=== PATIENT | female | born 1980 | race Caucasian/White ===

== ENCOUNTER 2016-05-21 13:09 | Emergency (ER) | payer OTHER, SELFPAY ==
--- NOTE | 2016-05-21 17:54 | ERRECORD ---
[facility] EMERGENCY RECORD HPI URI (SatMay 23, 2016 00:27 ALMO) CHIEF COMPLAINT: Patient presents for evaluation of sore throat, Patient presents for evaluation of nasal congestion, Patient presents for evaluation of cough. HISTORIAN: History provided by patient. SEVERITY: Maximum severity of symptoms mild, Currently symptoms are moderate. TIME COURSE: Gradual onset of symptoms. ASSOCIATED WITH: Associated with chest pain, intermittent. ROS CONSTITUTIONAL: Historian reports chills, reports fever. (SatMay 23, 2016 00:29 ALMO) ENT: Historian reports rhinorrhea, reports sore throat. (SatMay 23, 2016 00:29 ALMO) CARDIOVASCULAR: Historian reports chest pain. (SatMay 23, 2016 00:29 ALMO) RESPIRATORY: Historian reports cough, denies shortness of breath. (SatMay 23, 2016 00:29 ALMO) GI: Historian denies nausea, denies vomiting. (SatMay 23, 2016 00:29 ALMO) NOTES: All systems reviewed, negative except as described above. (SatMay 23, 2016 00:30 ALMO) PAST MEDICAL HISTORY (13:25 AWAT) MEDICAL HISTORY: Flu vaccine not up to date, Tetanus immunization up to date, Pneumococcal vaccine not up to date, endocrine disease, hypothyroidism, Notes: GRAVE'S DISEASE, HAD RADIATION TO THYROID AT 13 YEARS OLD, Past medical history includes gastrointestinal disease, irritable bowel syndrome, Past medical history includes musculoskeletal disorder, OSTEOPOROSIS, Notes: FIBROMYALGIA, HYPOGLYCEMIA. FEMALE SURGICAL HISTORY: Surgical history of section X1, Surgical history of tubal ligation, TISSUE REMOVAL FROM CERVIX.07/20/15. OVARIES FROM ABD TISSUE GROWTH. PSYCHIATRIC HISTORY: Psychiatric history includes, bipolar disorder.07/20/15. Notes: Patient states history of BIpolar disorder, Schizophrenia and anxiety. States has successfully controlled all without medications. SAYS SHE TREATS IT WITH JOYCE. SOCIAL HISTORY: Patient denies alcohol use, Patient currently uses drugs, abuses marijuana, Daily drug use, Last used: 2 DAYS AGO, Patient currently uses tobacco, smokes cigarettes, daily, Patient has smoked for 30 years, Patient smokes 1/2 packs per day, Lives at home, alone. FAMILY HISTORY: Family history includes psychiatric disorders. KNOWN ALLERGIES Adult Aspirin: - THINS BLOOD TOO MUCH codeine (Unconfirmed) codeine sulfate: Reaction: Hives, Severity: Moderate, Source: &a-1R&a+25V*p+0X*e4111C*c152B*c15G*c2P*p-0X&a-25V&a+1RName: Ju Shane : 1980 F35 MedRec: [id number] AcctNum: [id number] Prepared: SatMay 23, 2016 00:34 by Interface Page 1 of 3 pMD [facility] EMERGENCY RECORD Patient traMADol: Reaction: Hives, Severity: Moderate, Source: Patient ultram (Unconfirmed) CURRENT MEDICATIONS (13:20 AWAT) Neurontin: TABLET : Strength - 600 mg : ORAL Patient Dose: 1 cap(s) Oral once a day (at bedtime). CAPSULE : Strength - 300 mg : ORAL Patient Dose: 1 cap(s) Oral 2 times a day. levothyroxine: TABLET : Strength - 100 mcg : ORAL Patient Dose: 1 tab(s) Oral once a day (in the morning). VITAL SIGNS (13:16 AWAT) VITAL SIGNS: BP: 121/69, Pulse: 88, Resp: 16, Temp: 98.3 (Oral), Pain: 5 (Constant), O2 sat: 100 on Room Air, Time: 05/21/2016 13:16. PHYSICAL EXAM (SatMay 23, 2016 00:30 ALMO) CONSTITUTIONAL: Vital signs reviewed. HEAD: normocephalic. EYES: Pupils equally round and reactive to light. ENT: Ear exam normal, Pharynx exam normal, Tonsil exam normal. NECK: no cervical adenopathy. RESPIRATORY CHEST: Respiratory exam included findings of no respiratory distress, Breath sounds clear. CARDIOVASCULAR: Cardiovascular exam included findings of heart rate regular rate and rhythm, Heart sounds normal, no murmurs. ABDOMEN FEMALE: Abdominal exam included findings of abdomen nontender. NEURO: Neuro exam findings include patient oriented to person, place and time, Speech normal, Gait normal, no focal motor deficits. SKIN: Skin exam included findings of skin warm, dry, and normal in color. PSYCHIATRIC: Psychiatric exam included findings of patient oriented to person place and time. PROBLEM LIST No recorded problems DIAGNOSIS (17:31 ALMO) FINAL: PRIMARY: Acute URI. PRESCRIPTION No recorded prescriptions DISPOSITION PATIENT: Disposition Type: Discharge, Disposition: *Discharge Home. (17:31 YANI) Patient left the department. (17:47 LOVE) &a-1R&a+25V*p+0X*a2846Z*c152B*c15G*c2P*p-0X&a-25V&a+1RName: ShaneJu : 1980 F35 MedRec: [id number] AcctNum: [id number] Prepared: SatMay 23, 2016 00:34 by Interface Page 2 of 3 pMD [facility] EMERGENCY RECORD Patel: YANI=MD Mathew, Dennis BRUSH=Eduardo RN, Nabor ALEMAN=MORENA Cardoso, Catrachita &a-1R&a+25V*p+0X*z0401F*c152B*c15G*c2P*p-0X&a-25V&a+1RName: Ju Shane : 1980 F35 MedRec: [id number] AcctNum: [id number] Prepared: SatMay 23, 2016 00:34 by Interface Page 3 of 3 pMD MTDD
--- NOTE | 2016-05-21 18:02 | PICIS ---
[facility] EMERGENCY RECORD TRIAGE (SatMay 21, 2016 13:19 AWAT) PATIENT: NAME: Ju Shane, AGE: 35, GENDER: female, : [facility] 1980, TIME OF GREET: SatMay 21, 2016 13:10, PREFERRED LANGUAGE: Divehi, ETHNICITY: Not or , HIGH ALERT: HIGH ALERT 1, FALL RISK: NO, ECODE BILLING MAP: [facility] ER, SSN: [id number], Zip Code: [address], KG WEIGHT: 43.54, PHONE: CELL, , , PERSON ID: [id number], PCP: THOMAS ANTOINE. (SatMay 21, 2016 13:19 AWAT) TRIAGE NOTES: PT C/O COUGH, LOTS OF CONGESTION, BILATERAL EARACHES, SORE/RAW THROAT. THIS ALL STARTED 3 DAYS AGO. THINKS SHE HAS RAN FEVER, BUT NONE AT THIS TIME. TRIAGED, THEN PLACED BACK OUT IN THE WAITING ROOM. FLU & STREP TESTS OBTAINED. (SatMay 21, 2016 13:19 AWAT) COMPLAINT: FLU LIKE SYMPTOMS. (SatMay 21, 2016 13:19 AWAT) ADMISSION: URGENCY: 5 Fast Track, ADMISSION SOURCE: Home, TRANSPORT: Walk-in, BED: WAIT. (SatMay 21, 2016 13:19 AWAT) SIRS SCORING: Heart Rate 55-109 (0), Temp range 96.8-101.1 (0), respiratory rate 12-24 (0), Mental Status altered: no (0). (13:25 AWAT) LMP: Last menstrual period: 04/29/2016. (13:25 AWAT) PROVIDERS: TRIAGE NURSE: Nabor Clark RN. (SatMay 21, 2016 13:19 AWAT) VITAL SIGNS: BP 121/69, Pulse 88, Resp 16, Temp 98.3, (Oral), Pain 5, (Constant), O2 Sat 100, on Room Air, Time 05/21/2016 13:16. (13:16 AWAT) PREVIOUS VISIT ALLERGIES: Adult Aspirin, codeine sulfate, traMADol. (SatMay 21, 2016 13:19 AWAT) Adult Aspirin, codeine sulfate, traMADol. (13:25 AWAT) KNOWN ALLERGIES Adult Aspirin: - THINS BLOOD TOO MUCH codeine (Unconfirmed) codeine sulfate: Reaction: Hives, Severity: Moderate, Source: Patient traMADol: Reaction: Hives, Severity: Moderate, Source: Patient ultram (Unconfirmed) CURRENT MEDICATIONS (13:20 AWAT) Neurontin: TABLET : Strength - 600 mg : ORAL Patient Dose: 1 cap(s) Oral once a day (at bedtime). CAPSULE : Strength - 300 mg : ORAL Patient Dose: 1 cap(s) Oral 2 times a day. levothyroxine: TABLET : Strength - 100 mcg : ORAL Patient Dose: 1 tab(s) Oral once a day (in the morning). VITAL SIGNS (13:16 AWAT) VITAL SIGNS: BP: 121/69, Pulse: 88, Resp: 16, Temp: 98.3 (Oral), &a-1R&a+25V*p+0X*h9284D*c152B*c15G*c2P*p-0X&a-25V&a+1RName: Acosta Ju : 1980 F35 MedRec: [id number] AcctNum: [id number] Prepared: SatMay 23, 2016 00:34 by Interface Page 1 of 5 pMD [facility] EMERGENCY RECORD Pain: 5 (Constant), O2 sat: 100 on Room Air, Time: 05/21/2016 13:16. NURSING ASSESSMENT: ENT (13:22 AWAT) CONSTITUTIONAL: Simple assessment performed, Patient arrives ambulatory, Gait steady, History obtained from patient, Patient appears comfortable, Patient cooperative, Patient alert, Oriented to person, place and time, Skin warm, Skin dry, Skin normal in color, Mucous membranes pink, Mucous membranes moist, Patient is well-groomed, Patient complains of SORE THROAT, COUGH, CONGESTION, EAR ACHES. PAIN: aching pain, to bilateral ears, to the throat, Onset of pain 05/18/2016 - APPROX, on a scale 0-10 patient rates pain as 5. ENT: Nasal assessment findings include nose normal to inspection, Mouth and throat assessment findings include mouth inspection normal, Notes: DR CARMONA WILL EXAMINE FURTHER. THROAT VERY RED, NO EAR OR NOSE DRAINAGE NOTED. POOR DENTAL. RESPIRATORY/CHEST: Breath sounds clear, Respiratory assessment findings include respiratory effort easy, Respirations regular, Conversing normally, Neck and chest exam findings include trachea midline, Chest expansion equal, Chest movement symmetrical, Associated with cough, productive of, yellow sputum, PER PT. NOTES: Emotional support needed and given, Patient tolerated procedure well. SAFETY: Side rails up, Cart/Stretcher in lowest position, Call light within reach, Hospital ID band on, Physician notified of above findings. ORDER DETAILS Order Name: Influenza A&B Ag Screen, Status: Active, Time: 13:30 05/21/2016, User: GONSALO, - Ordered for: MD Carmona Alberto, - Entered by: MORENA Clark Adam - Larisa May 21, 2016 13:30, - Quantity: 1, Order Name: Strep Group A Screen, Status: Active, Time: 13:30 05/21/2016, User: GONSALO, - Ordered for: MD Carmona Alberto, - Entered by: MORENA Clark Adam - [facility] May 21, 2016 13:30, - Quantity: 1. HPI URI (SatMay 23, 2016 00:27 ALMO) CHIEF COMPLAINT: Patient presents for evaluation of sore throat, Patient presents for evaluation of nasal congestion, Patient presents for evaluation of cough. HISTORIAN: History provided by patient. SEVERITY: Maximum severity of symptoms mild, Currently symptoms are moderate. TIME COURSE: Gradual onset of symptoms. ASSOCIATED WITH: Associated with chest pain, intermittent. &a-1R&a+25V*p+0X*g4200Y*c152B*c15G*c2P*p-0X&a-25V&a+1RName: Ju Shane : 1980 F35 MedRec: [id number] AcctNum: [id number] Prepared: SatMay 23, 2016 00:34 by Interface Page 2 of 5 pMD [facility] EMERGENCY RECORD ROS CONSTITUTIONAL: Historian reports chills, reports fever. (SatMay 23, 2016 00:29 ALMO) ENT: Historian reports rhinorrhea, reports sore throat. (SatMay 23, 2016 00:29 ALMO) CARDIOVASCULAR: Historian reports chest pain. (SatMay 23, 2016 00:29 ALMO) RESPIRATORY: Historian reports cough, denies shortness of breath. (SatMay 23, 2016 00:29 ALMO) GI: Historian denies nausea, denies vomiting. (SatMay 23, 2016 00:29 ALMO) NOTES: All systems reviewed, negative except as described above. (SatMay 23, 2016 00:30 ALMO) PAST MEDICAL HISTORY (13:25 AWAT) MEDICAL HISTORY: Flu vaccine not up to date, Tetanus immunization up to date, Pneumococcal vaccine not up to date, endocrine disease, hypothyroidism, Notes: GRAVE'S DISEASE, HAD RADIATION TO THYROID AT 13 YEARS OLD, Past medical history includes gastrointestinal disease, irritable bowel syndrome, Past medical history includes musculoskeletal disorder, OSTEOPOROSIS, Notes: FIBROMYALGIA, HYPOGLYCEMIA. FEMALE SURGICAL HISTORY: Surgical history of section X1, Surgical history of tubal ligation, TISSUE REMOVAL FROM CERVIX.07/20/15. OVARIES FROM ABD TISSUE GROWTH. PSYCHIATRIC HISTORY: Psychiatric history includes, bipolar disorder.07/20/15. Notes: Patient states history of BIpolar disorder, Schizophrenia and anxiety. States has successfully controlled all without medications. SAYS SHE TREATS IT WITH JOYCE. SOCIAL HISTORY: Patient denies alcohol use, Patient currently uses drugs, abuses marijuana, Daily drug use, Last used: 2 DAYS AGO, Patient currently uses tobacco, smokes cigarettes, daily, Patient has smoked for 30 years, Patient smokes 1/2 packs per day, Lives at home, alone. FAMILY HISTORY: Family history includes psychiatric disorders. PHYSICAL EXAM (SatMay 23, 2016 00:30 ALMO) CONSTITUTIONAL: Vital signs reviewed. HEAD: normocephalic. EYES: Pupils equally round and reactive to light. ENT: Ear exam normal, Pharynx exam normal, Tonsil exam normal. NECK: no cervical adenopathy. RESPIRATORY CHEST: Respiratory exam included findings of no respiratory distress, Breath sounds clear. CARDIOVASCULAR: Cardiovascular exam included findings of heart rate regular rate and rhythm, Heart sounds normal, no murmurs. ABDOMEN FEMALE: Abdominal exam included findings of abdomen nontender. NEURO: Neuro exam findings include patient oriented to person, &a-1R&a+25V*p+0X*n2447N*c152B*c15G*c2P*p-0X&a-25V&a+1RName: Ju Shane : 1980 F35 MedRec: [id number] AcctNum: [id number] Prepared: SatMay 23, 2016 00:34 by Interface Page 3 of 5 pMD [facility] EMERGENCY RECORD place and time, Speech normal, Gait normal, no focal motor deficits. SKIN: Skin exam included findings of skin warm, dry, and normal in color. PSYCHIATRIC: Psychiatric exam included findings of patient oriented to person place and time. EVENTS TRANSFER: Triage to Emergency Waiting. (13:19 AWAT) Removed from Emergency Waiting. (17:47 MDEB) PROBLEM LIST No recorded problems DIAGNOSIS (17:31 ALMO) FINAL: PRIMARY: Acute URI. DISPOSITION PATIENT: Disposition Type: Discharge, Disposition: *Discharge Home. (17:31 ALMO) Patient left the department. (17:47 MDEB) INSTRUCTION (17:32 ALMO) DISCHARGE: URI NO ANTIBIOTIC TREATMENT ADULT. FOLLOWUP: Follow up with Primary Care Physician as needed. SPECIAL: Follow-up with your PCP. PRESCRIPTION No recorded prescriptions IMAGING (21:47 ADEA) *DISCHARGE INSTRUCTIONS RECEIPT: Image captured from scanner. *SUPPLY CHARGE SHEET: Image captured from scanner. ADMIN (SatMay 23, 2016 00:32 ALMO) DIGITAL SIGNATURE: MD Mathew [facility]. RESULTS (14:20 AWAT) MICROBIOLOGY: Influenza A&B Ag Screen: [id number] Collection DT: SatMay 21, 2016 13:37, See comment below , @ ER ROOM#: WAIT[TxData]:ER.BED Source: Nasal swab Spec Desc: , Influenza A Antigen: NEGATIVE for the , presence of , INFLUENZA A Antigen , Influenza B Antigen: NEGATIVE for the , presence of , INFLUENZA B Antigen , The rapid Flu A&B test can distinguish between influenza A , Influenza A&B Ag Screen See comment below , and B viruses, but it does not differentiate influenza , &a-1R&a+25V*p+0X*m0022G*c152B*c15G*c2P*p-0X&a-25V&a+1RName: Ju Shane : 1980 F35 MedRec: [id number] AcctNum: [id number] Prepared: SatMay 23, 2016 00:34 by Interface Page 4 of 5 pMD [facility] EMERGENCY RECORD Influenza A&B Ag Screen See comment below , subtypes. , Influenza A&B Ag Screen See comment below , Influenza A&B Ag Screen See comment below , Influenza A&B Ag Screen See comment below , Influenza A&B Ag Screen See comment below , characteristics of this device with human specimens infected , Influenza A&B Ag Screen See comment below , with the 2008 H1N1 influenza virus have not been , Influenza A&B Ag Screen See comment below , established. For example: this test cannot distinguish , Influenza A&B Ag Screen See comment below , influenza infections caused by novel H1N1 influenza A , Influenza A&B Ag Screen See comment below , viruses versus seasonal influenza A viruses. , Influenza A&B Ag Screen See comment below , , Influenza A&B Ag Screen See comment below , A negative result does not exclude influenza virus , Influenza A&B Ag Screen See comment below , infection; therefore, if more conclusive testing is desired, , Influenza A&B Ag Screen See comment below , follow up confirmatory testing is warranted., Influenza A&B Ag Screen See comment below . Strep Group A Screen: [id number] Collection DT: SatMay 21, 2016 13:37, See comment below , @ ER ROOM#: WAIT[TxData]:ER.BED Source: Throat Spec Desc: PENDING, Strep A Negative CDC recommends , confirmation by , culture on all , negative , Strep negative line 1 Group A , Streptococcus rapid , screens. Please , order , Strep negative line 2 a throat culture if , clinically , indicated. , Rapid Strep Screen:Throat Negative . Patel: GLENDA=MORENA Harrison, Nikolay LOMELI=MD Mathew, Dennis BRUSH=MORENA Clark, Nabor ALEMAN=MORENA Cardoso, Catrachita &a-1R&a+25V*p+0X*i0589L*c152B*c15G*c2P*p-0X&a-25V&a+1RName: Ju Shane : 1980 F35 MedRec: [id number] AcctNum: [id number] Prepared: SatMay 23, 2016 00:34 by Interface Page 5 of 5 pMD MTDD
== END 2016-05-21 17:45 | disposition home or self-care (01) ==
LOC: MADERS 13:09
DX: J06.9 Acute upper respiratory infection, unspecified (principal); M81.0 Age-related osteoporosis without current pathological fracture; E03.9 Hypothyroidism, unspecified; F31.9 Bipolar disorder, unspecified; F41.9 Anxiety disorder, unspecified; F17.210 Nicotine dependence, cigarettes, uncomplicated
CPT/HCPCS: 87430; 99283

== ENCOUNTER 2016-05-25 11:11 | Emergency (ER) | payer SELFPAY ==
[2016-05-25] MEDS ORDERED: Lidocaine 1% 20 ML MDV ONE (11:34)
[2016-05-25] MEDS ORDERED: cefTRIAXone\\ROCEPHIN 1 GM VIAL ONE (11:34)
[2016-05-25] MEDS ORDERED: Ibuprofen 800 MG TAB ONE (11:34)
[2016-05-25] MEDS ORDERED: Ondansetron ODT 4 MG TAB ONE (11:34)
--- NOTE | 2016-05-25 12:13 | PICIS ---
[facility] EMERGENCY RECORD TRIAGE (SatMay 25, 2016 11:20 SFRE) TRIAGE NOTES: LEFT EAR PAIN. (SatMay 25, 2016 11:20 SFRE) PATIENT: NAME: Ju Shane, AGE: 35, GENDER: female, : [facility] 1980, TIME OF GREET: SatMay 25, 2016 11:12, PREFERRED LANGUAGE: [place] Zealander, ETHNICITY: Not or , HIGH ALERT: HIGH ALERT 1, FALL RISK: NO, ECODE BILLING MAP: [facility], SSN: [id number], Zip Code: [address], KG WEIGHT: 43.54, PHONE: CELL, , , PERSON ID: [id number], PCP: caitlin. (SatMay 25, 2016 11:20 SFRE) COMPLAINT: LEFT EAR PAIN. (SatMay 25, 2016 11:20 SFRE) ADMISSION: URGENCY: 5 Fast Track, ADMISSION SOURCE: Home, TRANSPORT: Walk-in, BED: ED -03. (SatMay 25, 2016 11:20 SFRE) ASSESSMENT: Symptoms began 05/25/2016. (11:22 SFRE) PAIN: Patient complains of pain described as, stabbing, on a scale 0-10 patient rates pain as 9, Pain is constant. (11:22 SFRE) IMMUNIZATIONS: Flu vaccine not up to date. (11:22 SFRE) SIRS SCORING: Heart Rate 55-109 (0), Temp range 96.8-101.1 (0), respiratory rate 12-24 (0), Mental Status altered: no (0). (11:22 SFRE) TRIAGE SCREENING: Patient denies suicidal ideation, Patient denies presence of domestic violence. (11:22 SFRE) PROVIDERS: TRIAGE NURSE: Edith Hamilton RN. (SatMay 25, 2016 11:20 SFRE) VITAL SIGNS: BP 143/88, Pulse 72, Resp 18, Temp 98.4, (Tympanic), Pain 9, (Stabbing), O2 Sat 100, on Room Air, Time 05/25/2016 11:19. (11:19 SFRE) PREVIOUS VISIT ALLERGIES: Adult Aspirin, codeine sulfate, traMADol. (SatMay 25, 2016 11:20 SFRE) Adult Aspirin, codeine sulfate, traMADol. (11:22 SFRE) KNOWN ALLERGIES Adult Aspirin: - THINS BLOOD TOO MUCH codeine (Unconfirmed) codeine sulfate: Reaction: Hives, Severity: Moderate, Source: Patient traMADol: Reaction: Hives, Severity: Moderate, Source: Patient ultram (Unconfirmed) CURRENT MEDICATIONS No recorded medications VITAL SIGNS (11:19 SFRE) VITAL SIGNS: BP: 143/88, Pulse: 72, Resp: 18, Temp: 98.4 (Tympanic), Pain: 9 (Stabbing), O2 sat: 100 on Room Air, Time: 05/25/2016 11:19. NURSING ASSESSMENT: EAR (11:44 SFRE) CONSTITUTIONAL: Patient arrives ambulatory, Gait steady, History &a-1R&a+25V*p+0X*[id number]*c152B*c15G*c2P*p-0X&a-25V&a+1RName: Ju Shane : 1980 F35 MedRec: [id number] AcctNum: [id number] Prepared: SatMay 25, 2016 20:00 by Interface Page 1 of 6 pMD [facility] EMERGENCY RECORD obtained from patient, Patient appears, in distress due to pain, Patient cooperative, Patient alert, Oriented to person, place and time, Skin warm, Skin dry, Skin normal in color, Mucous membranes pink, Mucous membranes moist, Patient is well-groomed, Patient complains of LEFT EAR PAIN. PAIN: sharp pain, throbbing pain, to the left ear, Onset of pain 05/25/2016 0200, constant, on a scale 0-10 patient rates pain as 9, Pain exacerbated by nothing, Nothing has been tried to alleviate the pain. EAR: Drainage from, the right ear, purulent. SAFETY: Side rails up, Cart/Stretcher in lowest position, Call light within reach, Hospital ID band on. NURSING PROCEDURE: DISCHARGE NOTE (11:56 SFRE) DISCHARGE: Patient discharged to home, ambulating without assistance, driving self, unaccompanied, Summary of Care printed/ provided, Patient requested and was provided an electronic copy of Discharge Instructions, Discharge instructions given to patient, Simple or moderate discharge teaching performed, by S.HAMILTON,RN, F/U WITH PCP. RX DIRECTED. RETURN TO ED NEEDED FOR NEW/CONCERNING OR WORSENING SYMPTOMS., Prescriptions given and instructions on side effects given, Name of prescription(s) given: TRAMADOL, ZOFRAN, AMOXICILLAN, Above person(s) verbalized understanding of discharge instructions and follow-up care. SAFETY: Side rails up, Cart/Stretcher in lowest position, Call light within reach, Hospital ID band on. MEDICATION ADMINISTRATION SUMMARY Drug Name: *Rocephin injection, Dose Ordered: 1 g, Route: Intramuscular, Status: Given, Time: 11:42 05/25/2016, Drug Name: ibuprofen, Dose Ordered: 800 mg, Route: Oral, Status: Given, Time: 11:41 05/25/2016, Drug Name: Zofran ODT, Dose Ordered: 8 mg, Route: Oral, Status: Given, Time: 11:41 05/25/2016, *Additional information available in notes, Detailed record available in Medication Service section. MEDICATION SERVICE ibuprofen: Order: ibuprofen - Dose: 800 mg : Oral POTENTIAL ALLERGY REACTION: 'Adult Aspirin [aspirin]' - Reviewed with patient, has taken before Schedule: Now Ordered by: Elijah Max MD Entered by: Elijah Max MD SatMay 25, 2016 11:27 , Acknowledged by: Edith Hamilton RN SatMay 25, 2016 11:33 Documented as given by: Edith Hamilton RN SatMay 25, 2016 11:41 Patient, Medication, Dose, Route and Time verified prior to administration. Amount given: 800MG, Site: Medication administered P.O., Correct &a-1R&a+25V*p+0X*d7355F*c152B*c15G*c2P*p-0X&a-25V&a+1RName: Ju Shane : 1980 F35 MedRec: [id number] AcctNum: [id number] Prepared: SatMay 25, 2016 20:00 by Interface Page 2 of 6 pMD [facility] EMERGENCY RECORD patient, time, route, dose and medication confirmed prior to administration, Patient advised of actions and side-effects prior to administration, Allergies confirmed and medications reviewed prior to administration, Patient in position of comfort, Side rails up, Cart in lowest position, Family at bedside. Rocephin injection: Order: Rocephin injection (ceftriaxone sodium) - Dose: 1 g : Intramuscular Schedule: Now Notes: Can mix with lidocaine Ordered by: Elijah Max MD Entered by: Elijah Max MD SatMay 25, 2016 11:25 , Acknowledged by: Edith Hamilton RN SatMay 25, 2016 11:33 Documented as given by: Edith Hamilton RN [facility] May 25, 2016 11:42 Patient, Medication, Dose, Route and Time verified prior to administration. IM antibiotic, Amount given: 1G, Medication administered to right hip, Medication combined for administration with 1% LIDOCAINE, Patient appears Awake and alert- acceptable, Correct patient, time, route, dose and medication confirmed prior to administration, Patient advised of actions and side-effects prior to administration, Allergies confirmed and medications reviewed prior to administration, Patient in position of comfort, Side rails up, Cart in lowest position, Family at bedside. Zofran ODT: Order: Zofran ODT (ondansetron) - Dose: 8 mg : Oral Schedule: Now Ordered by: Elijah Max MD Entered by: Elijah Max MD SatMay 25, 2016 11:27 , Acknowledged by: Edith Hamilton RN SatMay 25, 2016 11:33 Documented as given by: Edith Hamilton RN SatMay 25, 2016 11:41 Patient, Medication, Dose, Route and Time verified prior to administration. Amount given: 8MG, Site: Medication administered S.L., Correct patient, time, route, dose and medication confirmed prior to administration, Patient advised of actions and side-effects prior to administration, Allergies confirmed and medications reviewed prior to administration, Patient in position of comfort, Side rails up, Cart in lowest position, Family at bedside. HPI EAR PAIN (11:37 ABUS) CHIEF COMPLAINT: Patient presents for evaluation of pain, to the left ear. HISTORIAN: History provided by patient, 35 yr old F with L ear pain for 2-3 days now worse. Mild nausea but no fever or vomiting. LMP early Apr. LOCATION: Symptoms are localized, most severe in the left ear. QUALITY: Pain is dull in nature, described as aching, described as pressure-like. TIME COURSE: Gradual onset of symptoms, 3, days priror to arrival, Symptoms are worsening. ASSOCIATED WITH: Associated with headache, Associated with nausea. EXACERBATED BY: &a-1R&a+25V*p+0X*j2171K*c152B*c15G*c2P*p-0X&a-25V&a+1RName: Ju Shane : 1980 F35 MedRec: [id number] AcctNum: [id number] Prepared: SatMay 25, 2016 20:00 by Interface Page 3 of 6 pMD [facility] EMERGENCY RECORD Patient's condition exacerbated by nothing. RELIEVED BY: Patient's condition relieved by nothing. ROS CONSTITUTIONAL: Negative constitutional review of systems, Historian denies chills, denies fever. (11:38 ABUS) ENT: Historian reports otalgia. (11:39 ABUS) CARDIOVASCULAR: Negative cardiovascular review of systems, Historian denies chest pain, denies palpitations. (11:38 ABUS) RESPIRATORY: Negative respiratory review of systems, Historian denies cough, denies shortness of breath. (11:38 ABUS) GI: Negative gastrointestinal review of systems, Historian denies abdominal pain, denies constipation, denies diarrhea, denies nausea, denies vomiting. (11:38 ABUS) GENITOURINARY FEMALE: Negative genitourinary review of systems, Historian denies dysuria, denies frequency. (11:38 ABUS) SKIN: Negative skin review of systems, Historian denies rash, denies skin changes. (11:38 ABUS) NEUROLOGIC: Negative neurologic review of systems, Historian denies headache. (11:38 ABUS) HEMO/LYMPHATIC: Normal hematologic/lymphatic system review, Historian denies abnormal blood clotting. (11:38 ABUS) PAST MEDICAL HISTORY (11:22 SFRE) MEDICAL HISTORY: Flu vaccine not up to date, Tetanus immunization up to date, Pneumococcal vaccine not up to date, endocrine disease, hypothyroidism, Notes: GRAVE'S DISEASE, HAD RADIATION TO THYROID AT 13 YEARS OLD, Past medical history includes gastrointestinal disease, irritable bowel syndrome, Past medical history includes musculoskeletal disorder, OSTEOPOROSIS, Notes: FIBROMYALGIA, HYPOGLYCEMIA. FEMALE SURGICAL HISTORY: Surgical history of section X1, Surgical history of tubal ligation, TISSUE REMOVAL FROM CERVIX.07/20/15. OVARIES FROM ABD TISSUE GROWTH. PSYCHIATRIC HISTORY: Psychiatric history includes, bipolar disorder.07/20/15. Notes: Patient states history of BIpolar disorder, Schizophrenia and anxiety. States has successfully controlled all without medications. SAYS SHE TREATS IT WITH JOYCE. SOCIAL HISTORY: Patient denies alcohol use, Patient currently uses drugs, abuses marijuana, Daily drug use, Last used: 2 DAYS AGO, Patient currently uses tobacco, smokes cigarettes, daily, Patient has smoked for 30 years, Patient smokes 1/2 packs per day, Lives at home, alone. FAMILY HISTORY: Family history includes psychiatric disorders. PHYSICAL EXAM CONSTITUTIONAL: Vital signs reviewed, Patient afebrile, Pulse normal, Blood pressure normal, Respiratory rate normal, Patient appears non toxic, Patient appears pain free, Patient alert and oriented to person, place and time. (11:38 ABUS) &a-1R&a+25V*p+0X*c4581T*c152B*c15G*c2P*p-0X&a-25V&a+1RName: Ju Shane : 1980 F35 MedRec: [id number] AcctNum: [id number] Prepared: SatMay 25, 2016 20:00 by Interface Page 4 of 6 pMD [facility] EMERGENCY RECORD ENT: Ear exam included findings of, left external ear with erythema, right external ear normal, tympanic membrane with bulging on the left, tympanic membrane normal on the right, Nose exam normal, no nasal deformity, no bleeding from nares, Pharynx exam normal, not injected, no swelling, symmetrical, Uvula exam normal, Tonsil exam normal, not enlarged, no exudates. (11:39 ABUS) NECK: Neck exam normal, Neck exam included findings of normal range of motion, Trachea midline, no meningeal signs, no cervical adenopathy, no tenderness. (11:38 ABUS) RESPIRATORY CHEST: Respiratory and chest exam normal, Respiratory exam included findings of no respiratory distress, Breath sounds clear. (11:38 ABUS) CARDIOVASCULAR: Cardiovascular assessment normal, Cardiovascular exam included findings of heart rate regular rate and rhythm, Heart sounds normal. (11:38 ABUS) ABDOMEN FEMALE: Abdominal exam included findings of abdomen nontender, Bowel sounds normal, no distension, no mass, no pulsatile masses, no peritoneal signs, no rigidity, no guarding, no rebound, Rovsing's sign absent. (11:38 ABUS) BACK: Back exam normal, Back exam included findings of normal inspection, range of motion normal, no tenderness. (11:38 ABUS) NEURO: Neuro exam normal, Neuro exam findings include patient oriented to person, place and time, Speech normal, Gait normal. (11:38 ABUS) SKIN: Skin exam normal, Skin exam included findings of skin warm, dry, and normal in color, no rash. (11:38 ABUS) EVENTS TRANSFER: Triage to Emergency Main ED -03. (SatMay 25, 2016 11:20 SFRE) Removed from Emergency Main ED -03. (12:00 SFRE) DOCTOR NOTES (11:40 ABUS) TEXT: 35 yr old F with L ear pain for 2-3 days now worse. Mild nausea but no fever or vomiting. Exam: Left TM redness DX: otitis media Plan: Abx, analgesics, Zofran Dispo: d/c home with return precautions. PROBLEM LIST No recorded problems DIAGNOSIS (11:30 ABUS) FINAL: PRIMARY: Otitis Media - LEFT ear. DISPOSITION PATIENT: Disposition Type: Discharge, Disposition: *Discharge Home, Condition: Good. (11:30 ABUS) Patient left the department. (12:00 SFRE) &a-1R&a+25V*p+0X*[id number]*c152B*c15G*c2P*p-0X&a-25V&a+1RName: Ju Shane : 1980 F35 MedRec: [id number] AcctNum: [id number] Prepared: SatMay 25, 2016 20:00 by Interface Page 5 of 6 pMD [facility] EMERGENCY RECORD INSTRUCTION (11:30 ABUS) DISCHARGE: EARACHE WITH INFECTION OTITIS MEDIA ABX [place] ADULT. FOLLOWUP: [facility], [facility], [address] [facility], [facility] [address], , Follow up with Primary Care Physician in 2-3 days. SPECIAL: As discussed in the ER before you left, please follow up with your primary care doctor or call the referral made for you here in the ED today to establish outpatient follow up for your medical care. Please come back sooner if you start to develop fever, worsening pain, vomiting, or symptoms that are new or symptoms the concern you. PRESCRIPTION (11:29 ABUS) traMADol: TABLET : 50 mg : ORAL : Quantity: 1 Unit: tab(s) Route: ORAL Schedule: every 6 hours PRN Dispense: 10 Unit: tab(s) May substitute. Refills: No Refills POTENTIAL ALLERGY REACTION: 'codeine sulfate [codeine/codeine sulfate]', 'traMADol [tramadol/tramadol HCl]' Override Rationale: Not a true drug allergy, Reviewed with patient. NOTES: No Refills. Zofran ODT: TABLET,DISINTEGRATING : 4 mg : ORAL : Quantity: 1 Unit: tab(s) Route: ORAL Schedule: every 8 hours PRN Dispense: 5 Unit: tab(s) May substitute. Refills: No Refills . NOTES: ^s=No Refills No Refills. amoxicillin: CAPSULE : 500 mg : ORAL : Quantity: 1 Unit: cap(s) Route: ORAL Schedule: 3 times a day Dispense: 30 Unit: cap(s) May substitute. Refills: No Refills . NOTES: ^s=^s=No Refills No Refills No Refills. IMAGING (11:58 SFRE) *DISCHARGE INSTRUCTIONS RECEIPT: Image captured from scanner. *SUPPLY CHARGE SHEET: Image captured from scanner. ADMIN DIGITAL SIGNATURE: MORENA Hamilton Stacey. (12:00 SFRE) MD Max Anthony. (19:48 ABUS) Patel: ABUS=MD Max Anthony SFRE=MORENA Hamilton Stacey &a-1R&a+25V*p+0X*t1939G*c152B*c15G*c2P*p-0X&a-25V&a+1RName: Ju Shane : 1980 F35 MedRec: [id number] AcctNum: [id number] Prepared: SatMay 25, 2016 20:00 by Interface Page 6 of 6 pMD MTDD
== END 2016-05-25 11:59 | disposition home or self-care (01) ==
LOC: MADERS 11:11
DX: H66.92 Otitis media, unspecified, left ear (principal); E03.9 Hypothyroidism, unspecified; F17.210 Nicotine dependence, cigarettes, uncomplicated; F31.9 Bipolar disorder, unspecified
CPT/HCPCS: 96372; J0696; J2001; Q0162

== ENCOUNTER 2016-05-29 15:35 | Emergency (ER) | payer MEDICAID, SELFPAY ==
--- NOTE | 2016-05-29 16:34 | ERRECORD ---
[facility] EMERGENCY RECORD HPI EAR PAIN (16:08 LHOD) CHIEF COMPLAINT: Patient presents for evaluation of pain, to bilateral ears. HISTORIAN: History provided by patient. TIME COURSE: PT REPORTS 3-4 DAYS AGO SHE HAD ONSET OF LEFT EAR PAIN. WAS SEEN HERE AND DIAGNOSED WITH OM. PT REPORTS SHE HAS IMPROVED ON AMOXIL, BUT NOW HAS FULLNESS IN LEFT EAR. NO FEVER OR VOMTING. ASSOCIATED WITH: No associated chills, Associated with cough, No associated dizziness, No associated drainage, No associated dysphagia, No associated fever, No associated foreign body, No associated headache, No associated nausea, No associated sore throat, No associated trauma. ROS (16:13 LHOD) CONSTITUTIONAL: Historian denies chills, denies fever. ENT: Historian reports hearing changes, reports otalgia, reports rhinorrhea, reports sinus pain, denies sore throat. REPORTS BOTH EARS FEEL CONGESTED. CARDIOVASCULAR: Historian denies chest pain. RESPIRATORY: Historian reports cough. GI: Historian denies abdominal pain, denies nausea. GENITOURINARY FEMALE: Historian denies . SKIN: Historian denies rash. NEUROLOGIC: Historian denies dizziness, denies headache. NOTES: All systems reviewed, negative except as described above. PAST MEDICAL HISTORY MEDICAL HISTORY: Flu vaccine not up to date, Tetanus immunization up to date, Pneumococcal vaccine not up to date, endocrine disease, hypothyroidism, Notes: GRAVE'S DISEASE, HAD RADIATION TO THYROID AT 13 YEARS OLD, Past medical history includes gastrointestinal disease, irritable bowel syndrome, Past medical history includes musculoskeletal disorder, OSTEOPOROSIS, Notes: FIBROMYALGIA, HYPOGLYCEMIA. (15:43 SFRE) FEMALE SURGICAL HISTORY: Surgical history of section X1, Surgical history of tubal ligation, TISSUE REMOVAL FROM CERVIX.07/20/15. OVARIES FROM ABD TISSUE GROWTH. (15:43 SFRE) PSYCHIATRIC HISTORY: Psychiatric history includes, bipolar disorder.07/20/15. Notes: Patient states history of BIpolar disorder, Schizophrenia and anxiety. States has successfully controlled all without medications. SAYS SHE TREATS IT WITH MARAJUANA. (15:43 SFRE) SOCIAL HISTORY: Patient denies alcohol use, Patient currently uses drugs, abuses marijuana, Daily drug use, Last used: 2 DAYS AGO, Patient currently uses tobacco, smokes cigarettes, daily, Patient has smoked for 30 years, Patient smokes 1/2 packs per day, Lives at home, alone. (15:43 SFRE) FAMILY HISTORY: Family history includes psychiatric disorders. (15:43 SFRE) &a-1R&a+25V*p+0X*y0737O*c152B*c15G*c2P*p-0X&a-25V&a+1RName: Ju Shane : 1980 F35 MedRec: [id number] AcctNum: [id number] Prepared: Ty May 29, 2016 18:43 by Interface Page 1 of 3 pMD [facility] EMERGENCY RECORD NOTES: Nursing records reviewed. (15:45 LHOD) KNOWN ALLERGIES Adult Aspirin: - THINS BLOOD TOO MUCH codeine (Unconfirmed) codeine sulfate: Reaction: Hives, Severity: Moderate, Source: Patient traMADol (Unconfirmed): Reaction: Hives, Severity: Moderate, Source: Patient ultram (Unconfirmed) CURRENT MEDICATIONS No recorded medications PHYSICAL EXAM (18:38 LHOD) CONSTITUTIONAL: Vital signs reviewed, Patient afebrile, Pulse normal, Blood pressure normal, Respiratory rate normal, Patient appears in pain, in moderate pain distress, Patient alert and oriented to person, place and time, PT VERY ANXIOUS. HEAD: Head exam included findings of head atraumatic. EYES: Pupils equally round and reactive to light, Extraocular muscles intact, EYE CHANGES OF GRAVES DISEASE WITH PROPTOSIS. ENT: Ear exam normal, Pharynx exam normal, RIGHT TM NORMAL, LEFT TM--LOWER EDGE HAS SMALL AMOUNT OF CERUMEN, BUT TM CLEAR W/O INFECTION. NECK: Neck exam included findings of normal range of motion, Trachea midline, no cervical adenopathy. RESPIRATORY CHEST: Respiratory exam included findings of no respiratory distress, Breath sounds clear. CARDIOVASCULAR: Cardiovascular exam included findings of heart rate regular rate and rhythm, Heart sounds normal. NEURO: Neuro exam findings include patient oriented to person, place and time, Speech normal. SKIN: no rash. PROBLEM LIST No recorded problems DIAGNOSIS (15:56 LHOD) FINAL: PRIMARY: BILATERAL OTALGIA---NON-SPECIFIC CONGESTION. PRESCRIPTION No recorded prescriptions DISPOSITION PATIENT: Disposition Type: Discharge, Disposition: *Discharge Home, Condition: Good. (15:56 LHOD) Patient left the department. (16:21 SFRE) &a-1R&a+25V*p+0X*h5858A*c152B*c15G*c2P*p-0X&a-25V&a+1RName: Ju Shane : 1980 5 MedRec: [id number] AcctNum: [id number] Prepared: SatMay 29, 2016 18:43 by Interface Page 2 of 3 pMD [facility] EMERGENCY RECORD Patel: LHOD=MD Vivienne, Josh SFRE=MORENA Hamilton, Edith &a-1R&a+25V*p+0X*[id number]*c152B*c15G*c2P*p-0X&a-25V&a+1RName: Ju Shane : 1980 F35 MedRec: [id number] AcctNum: [id number] Prepared: SatMay 29, 2016 18:43 by Interface Page 3 of 3 pMD [facility]
--- NOTE | 2016-05-29 16:44 | PICIS ---
[facility] EMERGENCY RECORD TRIAGE (SatMay 29, 2016 15:41 SFRE) PATIENT: NAME: Ju Shane, AGE: 35, GENDER: female, : Sat1980, TIME OF GREET: SatMay 29, 2016 15:36, PREFERRED LANGUAGE: Korean, ETHNICITY: Not or , HIGH ALERT: HIGH ALERT 1, FALL RISK: NO, ECODE BILLING MAP: [facility], SSN: [id number], Zip Code: [address], KG WEIGHT: 40.82, PHONE: CELL, , , PERSON ID: [id number]. (SatMay 29, 2016 15:41 SFRE) COMPLAINT: RT EAR INFECTION. (SatMay 29, 2016 15:41 SFRE) ADMISSION: URGENCY: 5 Fast Track, ADMISSION SOURCE: Home, TRANSPORT: Walk-in, BED: ED -03. (SatMay 29, 2016 15:41 SFRE) ASSESSMENT: Assessment: NAD. (15:44 SFRE) PAIN: Patient complains of pain described as, pressure, on a scale 0-10 patient rates pain as 4, Location RIGHT EAR INFECTION, Pain is constant. (15:44 SFRE) IMMUNIZATIONS: Flu vaccine not up to date. (15:44 SFRE) SIRS SCORING: Heart Rate 55-109 (0), Temp range 96.8-101.1 (0), respiratory rate 12-24 (0), Mental Status altered: no (0). (15:45 SFRE) TRIAGE SCREENING: Patient denies suicidal ideation, Patient denies presence of domestic violence. (15:45 SFRE) PROVIDERS: TRIAGE NURSE: Edith Hamilton RN. (SatMay 29, 2016 15:41 SFRE) PREVIOUS VISIT ALLERGIES: Adult Aspirin, codeine sulfate, traMADol. (SatMay 29, 2016 15:41 SFRE) Adult Aspirin, codeine sulfate, traMADol. (15:43 SFRE) KNOWN ALLERGIES Adult Aspirin: - THINS BLOOD TOO MUCH codeine (Unconfirmed) codeine sulfate: Reaction: Hives, Severity: Moderate, Source: Patient traMADol (Unconfirmed): Reaction: Hives, Severity: Moderate, Source: Patient ultram (Unconfirmed) CURRENT MEDICATIONS No recorded medications NURSING ASSESSMENT: EAR (15:45 SFRE) CONSTITUTIONAL: Patient arrives ambulatory, Gait steady, History obtained from patient, Patient appears comfortable, Patient cooperative, Patient alert, Oriented to person, place and time, Skin warm, Skin dry, Skin normal in color, Mucous membranes pink, Mucous membranes moist, Patient is well-groomed, Patient complains of RIGHT EAR PAIN. PAIN: pressure pain, to the right ear, constant, on a scale 0-10 patient rates pain as 4, Pain exacerbated by nothing, Nothing has been tried to &a-1R&a+25V*p+0X*o4122H*c152B*c15G*c2P*p-0X&a-25V&a+1RName: Ju Shane : 1980 F35 MedRec: [id number] AcctNum: [id number] Prepared: SatMay 29, 2016 18:50 by Interface Page [address] [facility] EMERGENCY RECORD alleviate the pain. EAR: Hearing deficit described as, muffled, to the right ear. SAFETY: Side rails up, Cart/Stretcher in lowest position, Call light within reach, Hospital ID band on. NURSING PROCEDURE: DISCHARGE NOTE (16:01 SFRE) DISCHARGE: Patient discharged to home, ambulating without assistance, driving self, unaccompanied, Summary of Care printed/ provided, Patient requested and was provided an electronic copy of Discharge Instructions, Discharge instructions given to patient, Simple or moderate discharge teaching performed, by MORENA HAQ, F/U WITH PCP. RETURN TO ED NEEDED FOR NEW/CONCERNING OR WORSENING SYMPTOMS. COMPLETE AMOXIL, Above person(s) verbalized understanding of discharge instructions and follow-up care. HPI EAR PAIN (16:08 LHOD) CHIEF COMPLAINT: Patient presents for evaluation of pain, to bilateral ears. HISTORIAN: History provided by patient. TIME COURSE: PT REPORTS 3-4 DAYS AGO SHE HAD ONSET OF LEFT EAR PAIN. WAS SEEN HERE AND DIAGNOSED WITH OM. PT REPORTS SHE HAS IMPROVED ON AMOXIL, BUT NOW HAS FULLNESS IN LEFT EAR. NO FEVER OR VOMTING. ASSOCIATED WITH: No associated chills, Associated with cough, No associated dizziness, No associated drainage, No associated dysphagia, No associated fever, No associated foreign body, No associated headache, No associated nausea, No associated sore throat, No associated trauma. ROS (16:13 LHOD) CONSTITUTIONAL: Historian denies chills, denies fever. ENT: Historian reports hearing changes, reports otalgia, reports rhinorrhea, reports sinus pain, denies sore throat. REPORTS BOTH EARS FEEL CONGESTED. CARDIOVASCULAR: Historian denies chest pain. RESPIRATORY: Historian reports cough. GI: Historian denies abdominal pain, denies nausea. GENITOURINARY FEMALE: Historian denies . SKIN: Historian denies rash. NEUROLOGIC: Historian denies dizziness, denies headache. NOTES: All systems reviewed, negative except as described above. PAST MEDICAL HISTORY MEDICAL HISTORY: Flu vaccine not up to date, Tetanus immunization up to date, Pneumococcal vaccine not up to date, endocrine disease, hypothyroidism, Notes: GRAVE'S DISEASE, HAD RADIATION TO THYROID AT 13 YEARS OLD, Past medical history includes gastrointestinal disease, irritable bowel syndrome, Past medical history includes musculoskeletal disorder, OSTEOPOROSIS, Notes: FIBROMYALGIA, HYPOGLYCEMIA. (15:43 SFRE) &a-1R&a+25V*p+0X*g0319Q*c152B*c15G*c2P*p-0X&a-25V&a+1RName: Ju Shane : 1980 F35 MedRec: [id number] AcctNum: [id number] Prepared: SatMay 29, 2016 18:50 by Interface Page [address] [facility] EMERGENCY RECORD FEMALE SURGICAL HISTORY: Surgical history of section X1, Surgical history of tubal ligation, TISSUE REMOVAL FROM CERVIX.07/20/15. OVARIES FROM ABD TISSUE GROWTH. (15:43 SFRE) PSYCHIATRIC HISTORY: Psychiatric history includes, bipolar disorder.07/20/15. Notes: Patient states history of BIpolar disorder, Schizophrenia and anxiety. States has successfully controlled all without medications. SAYS SHE TREATS IT WITH MARAJUANA. (15:43 SFRE) SOCIAL HISTORY: Patient denies alcohol use, Patient currently uses drugs, abuses marijuana, Daily drug use, Last used: 2 DAYS AGO, Patient currently uses tobacco, smokes cigarettes, daily, Patient has smoked for 30 years, Patient smokes 1/2 packs per day, Lives at home, alone. (15:43 SFRE) FAMILY HISTORY: Family history includes psychiatric disorders. (15:43 SFRE) NOTES: Nursing records reviewed. (15:45 LHOD) PHYSICAL EXAM (18:38 LHOD) CONSTITUTIONAL: Vital signs reviewed, Patient afebrile, Pulse normal, Blood pressure normal, Respiratory rate normal, Patient appears in pain, in moderate pain distress, Patient alert and oriented to person, place and time, PT VERY ANXIOUS. HEAD: Head exam included findings of head atraumatic. EYES: Pupils equally round and reactive to light, Extraocular muscles intact, EYE CHANGES OF GRAVES DISEASE WITH PROPTOSIS. ENT: Ear exam normal, Pharynx exam normal, RIGHT TM NORMAL, LEFT TM--LOWER EDGE HAS SMALL AMOUNT OF CERUMEN, BUT TM CLEAR W/O INFECTION. NECK: Neck exam included findings of normal range of motion, Trachea midline, no cervical adenopathy. RESPIRATORY CHEST: Respiratory exam included findings of no respiratory distress, Breath sounds clear. CARDIOVASCULAR: Cardiovascular exam included findings of heart rate regular rate and rhythm, Heart sounds normal. NEURO: Neuro exam findings include patient oriented to person, place and time, Speech normal. SKIN: no rash. EVENTS TRANSFER: Triage to Emergency Main ED -03. (15:41 SFRE) Removed from Emergency Main ED -03. (16:21 SFRE) PROBLEM LIST No recorded problems DIAGNOSIS (15:56 LHOD) FINAL: PRIMARY: BILATERAL OTALGIA---NON-SPECIFIC CONGESTION. &a-1R&a+25V*p+0X*q1966Q*c152B*c15G*c2P*p-0X&a-25V&a+1RName: Ju Shane : 1980 F35 MedRec: [id number] AcctNum: [id number] Prepared: SatMay 29, 2016 18:50 by Interface Page [address] [facility] EMERGENCY RECORD DISPOSITION PATIENT: Disposition Type: Discharge, Disposition: *Discharge Home, Condition: Good. (15:56 LHOD) Patient left the department. (16:21 SFRE) INSTRUCTION (15:57 LHOD) FOLLOWUP: Follow up with Primary Care Physician in 7 days. SPECIAL: COMPLETE THE AMOXIL. CONSIDER USING ORAL OVER THE COUNTER DECONGESTANT AND ANTI-HISTAMINE. Tylenol or Advil for Pain *RETURN IF WORSE Follow-up with your PCP. PRESCRIPTION No recorded prescriptions IMAGING (16:15 SFRE) *DISCHARGE INSTRUCTIONS RECEIPT: Image captured from scanner. *SUPPLY CHARGE SHEET: Image captured from scanner. ADMIN DIGITAL SIGNATURE: MORENA Hamilton Stacey. (16:20 SFRE) MD Palafox Lefayne. (18:41 LHOD) Patel: LHOD=MD Palafox Lefayne SFRE=MORENA Hamilton Stacey &a-1R&a+25V*p+0X*r0172J*c152B*c15G*c2P*p-0X&a-25V&a+1RName: Ju Shane : 1980 F35 MedRec: [id number] AcctNum: [id number] Prepared: Ty May 29, 2016 18:50 by Interface Page 4 of 4 pMD MTDD
== END 2016-05-29 16:01 | disposition home or self-care (01) ==
LOC: MADERS 15:35
DX: H92.03 Otalgia, bilateral (principal); E03.9 Hypothyroidism, unspecified; F31.9 Bipolar disorder, unspecified; F17.210 Nicotine dependence, cigarettes, uncomplicated
CPT/HCPCS: 99282

== ENCOUNTER 2016-06-07 18:45 | Emergency (ER) | payer MEDICAID ==
[2016-06-07] MEDS ORDERED: Amoxicillin/Potassium Clav 875 MG TAB ONE (19:19)
[2016-06-07] MEDS ORDERED: Adacel (T-DAP) 0.5 ML VIAL ONE (19:19)
== END 2016-06-07 19:54 | disposition home or self-care (01) ==
LOC: MADERS 18:45
DX: T14.8 Other injury of unspecified body region (principal); E03.9 Hypothyroidism, unspecified; E05.00 Thyrotoxicosis with diffuse goiter without thyrotoxic crisis or storm; K58.9 Irritable bowel syndrome, unspecified; M81.0 Age-related osteoporosis without current pathological fracture; M79.7 Fibromyalgia; F31.9 Bipolar disorder, unspecified; F20.9 Schizophrenia, unspecified; F41.9 Anxiety disorder, unspecified; F17.210 Nicotine dependence, cigarettes, uncomplicated; W54.0XXA Bitten by dog, initial encounter
CPT/HCPCS: 90471; 90715

== ENCOUNTER 2016-07-24 20:29 | Emergency (ER) | payer MEDICAID ==
[2016-07-24] MEDS ORDERED: Ondansetron ODT 4 MG TAB ONE (21:00)
[2016-07-24] MEDS ORDERED: Promethazine HCl 25 MG/ML VIAL ONE (21:00)
[2016-07-24] MEDS ORDERED: Mag-Al Plus 1200 MG/1200 MG/120 MG/30 ML UDCUP ONE (21:29)
== END 2016-07-24 21:35 | disposition home or self-care (01) ==
LOC: MADERS 20:29
DX: K29.20 Alcoholic gastritis without bleeding (principal); E03.9 Hypothyroidism, unspecified; F31.9 Bipolar disorder, unspecified; F41.9 Anxiety disorder, unspecified; F17.210 Nicotine dependence, cigarettes, uncomplicated; Z79.899 Other long term (current) drug therapy
CPT/HCPCS: 96372; J2550; Q0162

== ENCOUNTER 2017-01-25 15:18 | Emergency (ER) | payer MEDICAID, SELFPAY ==
[~2017-01-25 15:18] MED LIST: Donnatal Elixir 16.2 MG/5 ML UDCUP ONE
[2017-01-25 16:13] LABS: Pregnancy Test - Urine (BHCG) Negative (Negative); Pregu Control Background? CLEAR/WHITE (CLR/WHITE); Pregu Control Bar Appear? YES (CONTROL BAR); Specific Gravity 1.005 (1.002-1.036)
[2017-01-25 16:14] LABS: Bilirubin Negative (Negative); Blood, Urine Trace (Negative); Clarity Clear (Clear); Glucose, Urine (Dipstick) Negative (Negative); Leukocyte Negative (Negative); Nitrite Negative (Negative); Protein, Urine (Dipstick) Negative (Neg-Trace); Specific Gravity, Urine 1.005 (1.005-1.030); Urobilinogen 0.2 mg/dL (0.2-1.0)
[2017-01-25 16:15] LABS: Bacteria/HPF None Seen HPF (None Seen); Other Microscopic Description C&S SET UP; RBC/HPF 0-3 HPF (0-3); Squamous Epithelial 0-3 HPF (0-3); WBC/HPF None Seen HPF (0-3)
[2017-01-25] MEDS ORDERED: Donnatal Elixir 16.2 MG/5 ML UDCUP ONE (16:42)
[2017-01-25] MEDS ORDERED: Mag-Al Plus 1200 MG/1200 MG/120 MG/30 ML UDCUP ONE (16:42)
[2017-01-25] MEDS ORDERED: Lidocaine Viscous Sol 2% 15 ml UD Cup ONE (16:42)
[2017-01-25 16:44] LABS: #Basophils 0.1 thou/uL (0.0-0.2); #Eosinphils 0.3 thou/uL (0.0-0.7); #Lymphocytes 2.5 thou/uL (1.20-3.40); #Monocytes 0.6 thou/uL (0.11-0.59); #Neutrophils 4.2 thou/uL (1.40-6.50); %Eosinophils 3.5 % (0.0-10.0); %Lymphocytes 32.7 % (21.0-51.0); %Monocytes 7.5 % (0.0-10.0); %Neutrophils 55.3 % (42.0-75.0); Hemoglobin 12.7 g/dL (12.0-16.0); Mean Corpuscular HGB CONC 32.8 g/dL (32.0-36.0); Mean Corpuscular Hemoglobin 31.9 pg (27.0-31.0); Mean Corpuscular Volume 97.2 fl (81.0-99.0); Mean Platelet Volume 10.2 fL (7.4-10.4); Platelet Count 168 thou/uL (130-400); RBC Distribution Width 11.9 % (11.5-14.5); Red Blood Cell (RBC) Count 3.99 mill/uL (4.20-5.40); White Blood Cell (WBC) Count 7.7 thou/uL (4.8-10.8)
[2017-01-25 17:00] LABS: ALT (SGPT) 7 U/L (8-55); AST (SGOT) 16 U/L (5-34); Albumin 3.8 g/dL (3.5-5.0); Alkaline Phosphatase 54 U/L (40-150); Anion Gap 10 mmol/L (10-20); BUN (Urea Nitrogen) 5 mg/dL (7.0-18.7); Bilirubin, Total 0.5 mg/dL (0.2-1.2); Calc. Creatinine Clearance 0 mL/min (70-130); Calcium 8.9 mg/dL (7.8-10.44); Carbon Dioxide 27 mmol/L (22-29); Chloride 104 mmol/L (98-107); Estimated GFR-MDRD 59; Globulin 2.8 g/dL (2.4-3.5); Glucose 95 mg/dL (70-105); Potassium 3.8 mmol/L (3.5-5.1); Protein, Total 6.6 g/dL (6.0-8.3); Sodium 137 mmol/L (136-145)
== END 2017-01-25 17:12 | disposition home or self-care (01) ==
LOC: MADERS 15:18
DX: O09.521 Supervision of elderly multigravida, first trimester (principal); O99.611 Diseases of the digestive system complicating pregnancy, first trimester; O20.9 Hemorrhage in early pregnancy, unspecified; K21.9 Gastro-esophageal reflux disease without esophagitis; K58.9 Irritable bowel syndrome, unspecified; E03.9 Hypothyroidism, unspecified; M81.0 Age-related osteoporosis without current pathological fracture; O99.281 Endocrine, nutritional and metabolic diseases complicating pregnancy, first trimester; O99.341 Other mental disorders complicating pregnancy, first trimester; E05.00 Thyrotoxicosis with diffuse goiter without thyrotoxic crisis or storm; F41.9 Anxiety disorder, unspecified; F31.9 Bipolar disorder, unspecified; F20.9 Schizophrenia, unspecified; O99.331 Smoking (tobacco) complicating pregnancy, first trimester; Z3A.01 Less than 8 weeks gestation of pregnancy; Z79.899 Other long term (current) drug therapy
CPT/HCPCS: 36415; 80053; 81001; 81025; 83605; 84443; 85025; 87086; 99284

== ENCOUNTER 2017-02-18 13:04 | Emergency (ER) | payer SELFPAY ==
[2017-02-18] MEDS ORDERED: HYDROcodone/Acetaminophen 5/325 mg Tablet ONE (13:56)
[2017-02-18] MEDS ORDERED: Dexamethasone 4 MG TAB ONE (13:57)
[2017-02-18] MEDS ORDERED: Benzonatate 100 MG CAP ONE (13:57)
--- NOTE | 2017-02-18 14:01 | RAD ---
CHEST PA AND LATERAL TWO VIEWS: HISTORY: A 36-year-old female with cough. COMPARISON: 02/02/2016. FINDINGS: Heart size is normal. The lungs are clear. Bilateral nipple shadows are noted. No confluent pneum onia, overt edema, or pleural effusion. IMPRESSION: No acute intrathoracic disease. No evidence for pneumonia. Stable from prior study. POS: [facility]
== END 2017-02-18 14:20 | disposition home or self-care (01) ==
LOC: MADERS 13:04
DX: J20.8 Acute bronchitis due to other specified organisms (principal); E03.9 Hypothyroidism, unspecified; F41.9 Anxiety disorder, unspecified; F20.9 Schizophrenia, unspecified; F17.210 Nicotine dependence, cigarettes, uncomplicated; F31.9 Bipolar disorder, unspecified
CPT/HCPCS: 71020; 87081; 87430; J8540

== ENCOUNTER 2017-04-06 13:42 | Emergency (ER) | payer SELFPAY ==
[~2017-04-06 13:42] MED LIST changes: -Donnatal Elixir 16.2 MG/5 ML UDCUP ONE; +Sodium Chloride 0.9% 1,000 ML BAG ONE
[2017-04-06] MEDS ORDERED: Ciprofloxacin 500 MG TAB ONE (16:22)
[2017-04-06] MEDS ORDERED: cefTRIAXone\\ROCEPHIN 1 GM VIAL ONE (16:22)
[2017-04-06] MEDS ORDERED: Adacel (T-DAP) 0.5 ML VIAL ONE (16:22)
[2017-04-06] MEDS ORDERED: HYDROcodone/Acetaminophen 5/325 mg Tablet ONE (17:00)
== END 2017-04-06 17:15 | disposition home or self-care (01) ==
LOC: MADERS 13:42
DX: L03.113 Cellulitis of right upper limb (principal); F41.9 Anxiety disorder, unspecified; F20.9 Schizophrenia, unspecified; F17.210 Nicotine dependence, cigarettes, uncomplicated; F31.9 Bipolar disorder, unspecified; Z79.899 Other long term (current) drug therapy
CPT/HCPCS: 90715; 96361; 96374; J0696; J7050

== ENCOUNTER 2017-04-08 09:38 | Emergency (ER) | payer SELFPAY ==
[2017-04-08] MEDS ORDERED: Ondansetron HCl/PF 4 MG/2 ML Vial ONE (10:14)
[2017-04-08] MEDS ORDERED: Lorazepam 2 MG/ML VIAL ONE (10:14)
[2017-04-08] MEDS ORDERED: Promethazine HCl 25 MG/ML VIAL ONE (11:11)
[2017-04-08] MEDS ORDERED: Metoclopramide HCl 10 MG/2 ML VIAL ONE (11:49)
[2017-04-08] MEDS ORDERED: Ondansetron ODT 4 MG TAB ONE (12:01)
== END 2017-04-08 12:15 | disposition home or self-care (01) ==
LOC: MADERS 09:38
DX: R11.2 Nausea with vomiting, unspecified (principal); L03.113 Cellulitis of right upper limb; F17.210 Nicotine dependence, cigarettes, uncomplicated; F31.9 Bipolar disorder, unspecified; F20.9 Schizophrenia, unspecified; F41.9 Anxiety disorder, unspecified; Z79.899 Other long term (current) drug therapy
CPT/HCPCS: 96361; 96374; 96375; J2060; J2405; J2550; J2765; J7050; Q0162

== ENCOUNTER 2018-02-12 20:48 | Emergency (ER) | payer MEDICAID, SELFPAY ==
[2018-02-12] MEDS ORDERED: Ketorolac Tromethamine 60 MG/2 ML VIAL ONE (21:09)
[2018-02-12] MEDS ORDERED: Ondansetron ODT 4 MG TAB ONE (21:09)
== END 2018-02-12 21:27 | disposition home or self-care (01) ==
LOC: MADERS 20:48
DX: R51 Headache (principal); R11.2 Nausea with vomiting, unspecified; E03.9 Hypothyroidism, unspecified; F31.9 Bipolar disorder, unspecified; F17.210 Nicotine dependence, cigarettes, uncomplicated; F20.9 Schizophrenia, unspecified; Z79.899 Other long term (current) drug therapy
CPT/HCPCS: 99283; J1885; Q0162

== ENCOUNTER 2018-04-29 19:42 | Emergency (ER) | payer MEDICAID, SELFPAY ==
[2018-04-29] MEDS ORDERED: Mag-Al Plus 1200 MG/1200 MG/120 MG/30 ML UDCUP ONE (20:43)
[2018-04-29] MEDS ORDERED: Lidocaine Viscous Sol 2% 15 ml UD Cup ONE (20:43)
--- NOTE | 2018-04-29 21:03 | RAD ---
TWO VIEWS CHEST 04/29/18 PROVIDED CLINICAL HISTORY: Chest pain. FINDINGS: Comparison 02/18/17. The cardiac and mediastinal silhouette is within normal limits. Lungs appear clear. No pleural fluid or pneumothorax apparent. IMPRESSION: No evidence for an acute cardiopulmonary process. POS: [facility]
== END 2018-04-29 22:07 ==
LOC: MADERS 19:42
DX: R07.9 Chest pain, unspecified (principal); J02.9 Acute pharyngitis, unspecified; E03.9 Hypothyroidism, unspecified; K58.9 Irritable bowel syndrome, unspecified; F31.9 Bipolar disorder, unspecified; F41.9 Anxiety disorder, unspecified; F20.9 Schizophrenia, unspecified; F17.210 Nicotine dependence, cigarettes, uncomplicated; Z79.899 Other long term (current) drug therapy
CPT/HCPCS: 71046; 93005

== ENCOUNTER 2019-04-02 18:36 | Emergency (ER) | payer MEDICAID ==
--- NOTE | 2019-04-02 19:51 | RAD ---
EXAM: XR Knee Rt 4 View STANDARD PROVIDED CLINICAL HISTORY: Pain FINDINGS: There is no evidence for acute fracture or other acute osseous abnormality. Alignment appears anatomi c. Joint spaces appear preserved. Remote healed fibular fracture partially visualized, stable with respect to 09/22/2014. IMPRESSION: No evidence for an acute osseous abnormality. If there is persistent clinical concern, conservative m anagement and follow-up imaging advised.
[2019-04-02] MEDS ORDERED: Acetaminophen 500 MG TAB ONE (20:13)
== END 2019-04-02 20:23 | disposition home or self-care (01) ==
LOC: MADERS 18:36
DX: S83.91XA Sprain of unspecified site of right knee, initial encounter (principal); E03.9 Hypothyroidism, unspecified; M79.7 Fibromyalgia; F31.9 Bipolar disorder, unspecified; F20.9 Schizophrenia, unspecified; F41.9 Anxiety disorder, unspecified; F17.210 Nicotine dependence, cigarettes, uncomplicated; Z79.899 Other long term (current) drug therapy; X50.9XXA Other and unspecified overexertion or strenuous movements or postures, initial encounter

== ENCOUNTER 2019-06-03 18:11 | Emergency (ER) | payer MEDICAID | END 2019-06-03 19:02 | disposition home or self-care (01) | LOC: MADERS 18:11 | DX: J06.9 Acute upper respiratory infection, unspecified (principal); E03.9 Hypothyroidism, unspecified; M79.7 Fibromyalgia; F31.9 Bipolar disorder, unspecified; F41.9 Anxiety disorder, unspecified; F20.9 Schizophrenia, unspecified; F17.210 Nicotine dependence, cigarettes, uncomplicated; Z79.899 Other long term (current) drug therapy | CPT/HCPCS: 99281 ==

== ENCOUNTER 2020-01-06 22:57 | Emergency (ER) | payer MEDICAID ==
[2020-01-06] MEDS ORDERED: Ketorolac Tromethamine 30 MG/ML VIAL ONE (23:31)
[2020-01-06] MEDS ORDERED: Amoxicillin/Potassium Clav 875 MG TAB ONE (23:31)
[2020-01-06] MEDS ORDERED: Bacitracin 1 PK ONE (23:38)
--- NOTE | 2020-01-06 23:49 | RAD ---
2 views left tibia/fibula: 01/06/2020 COMPARISON: None HISTORY: Dog bite FINDINGS: Foci of soft tissue gas noted medial left lateral to the proximal/mid shaft left fibula con sistent with the history of dog bite. No associated fracture or radiopaque foreign body. Soft tissue gas seen anteriorly on the lateral view. IMPRESSION: Soft tissue gas consistent with dog bite. No associated fracture or radiopaque foreign mary dy.
== END 2020-01-06 23:50 | disposition home or self-care (01) ==
LOC: MADERS 22:57
DX: S81.832A Puncture wound without foreign body, left lower leg, initial encounter (principal); W55.21XA Bitten by cow, initial encounter
CPT/HCPCS: 96372; J1885

== ENCOUNTER 2020-09-03 20:17 | Emergency (ER) | payer MEDICAID ==
[2020-09-03] MEDS ORDERED: Naproxen 500 MG TAB ONE (21:30)
== END 2020-09-03 21:35 | disposition home or self-care (01) ==
LOC: MADERS 20:17
DX: S83.104A Unspecified dislocation of right knee, initial encounter (principal); M17.11 Unilateral primary osteoarthritis, right knee; E03.9 Hypothyroidism, unspecified; E05.00 Thyrotoxicosis with diffuse goiter without thyrotoxic crisis or storm; F17.210 Nicotine dependence, cigarettes, uncomplicated; X50.1XXA Overexertion from prolonged static or awkward postures, initial encounter

== ENCOUNTER 2021-01-28 17:38 | Emergency (ER) | payer MEDICAID, SELFPAY ==
[2021-01-28] MEDS ORDERED: Ondansetron ODT 4 MG TAB ONE (19:16)
[2021-01-28] MEDS ORDERED: Ketorolac Tromethamine 30 MG/ML VIAL ONE (19:16)
[2021-01-28] MEDS ORDERED: Sulfameth/Trimethoprim DS 800-160mg TAB ONE (19:16)
== END 2021-01-28 19:55 | disposition home or self-care (01) ==
LOC: MADERS 17:38
DX: G43.019 Migraine without aura, intractable, without status migrainosus (principal); L02.31 Cutaneous abscess of buttock; L03.317 Cellulitis of buttock; H53.149 Visual discomfort, unspecified; E03.9 Hypothyroidism, unspecified; F17.210 Nicotine dependence, cigarettes, uncomplicated
CPT/HCPCS: 96372; 99283; J1885; Q0162

== ENCOUNTER 2021-04-24 13:09 | Emergency (ER) | payer SELFPAY ==
[2021-04-25 15:08] LABS: SARS-CoV-2 PCR by NAA Not Detected (NotDetected)
== END 2021-04-24 13:45 | disposition home or self-care (01) ==
LOC: MADERS 13:09
DX: J06.9 Acute upper respiratory infection, unspecified (principal); Z20.822 Contact with and (suspected) exposure to COVID-19; E11.649 Type 2 diabetes mellitus with hypoglycemia without coma; E03.9 Hypothyroidism, unspecified; F17.210 Nicotine dependence, cigarettes, uncomplicated
CPT/HCPCS: 99283; U0003; U0005

== ENCOUNTER 2021-09-16 20:26 | Emergency (ER) | payer OTHER, SELFPAY ==
[2021-09-16 21:02] LABS: Blood, Urine Trace (Negative); Clarity Hazy (Clear); Glucose, Urine (Dipstick) 100 mg/dL (Negative)
[2021-09-16 21:03] LABS: Leukocyte Unable to Interpret (Negative); Nitrite Unable to Interpret (Negative)
[2021-09-16 21:04] LABS: Ketone, Urine Unable to Interpret mg/dL (Negative); Protein, Urine (Dipstick) Unable to Interpret mg/dL (Neg-Trace); Urobilinogen UNABLE TO INTERPRET mg/dL (Less than 2)
[2021-09-16] MEDS ORDERED: Sulfameth/Trimethoprim DS 800-160mg TAB ONE (21:04)
[2021-09-16 21:05] LABS: Bilirubin Unable to Interpret (Negative)
[2021-09-16 21:12] LABS: WBC/HPF Greater Than 50 HPF (0-3)
[2021-09-16 21:13] LABS: Bacteria/HPF 1+ HPF (None Seen); Transitional Epithelial 0-3 HPF (None Seen)
[2021-09-16 21:14] LABS: Mucous/LPF 1+ LPF (<2+)
== END 2021-09-16 21:09 | disposition home or self-care (01) ==
LOC: MADERS 20:26
DX: N39.0 Urinary tract infection, site not specified (principal); E11.649 Type 2 diabetes mellitus with hypoglycemia without coma; E03.9 Hypothyroidism, unspecified; F17.210 Nicotine dependence, cigarettes, uncomplicated
CPT/HCPCS: 81003; 81015; 99283

== ENCOUNTER 2022-01-29 16:51 | Emergency (ER) | payer OTHER | END 2022-01-29 18:05 | disposition home or self-care (01) | LOC: MADERS 16:51 | DX: J20.9 Acute bronchitis, unspecified (principal); J06.9 Acute upper respiratory infection, unspecified; E03.9 Hypothyroidism, unspecified; F17.210 Nicotine dependence, cigarettes, uncomplicated | CPT/HCPCS: 71046; 93005 ==

== ENCOUNTER 2022-02-13 10:22 | Emergency (ER) | payer OTHER ==
[~2022-02-13 10:22] MED LIST changes: +Iopamidol 370 76% 125 ML VIAL FS ONE; -Sodium Chloride 0.9% 1,000 ML BAG ONE; +Sodium Chloride 0.9% 100 ML BAG ONE
[2022-02-13 11:06] LABS: #Basophils 0.1 thou/uL (0.0-0.2); #Eosinphils 0.3 thou/uL (0.0-0.7); #Lymphocytes 2.5 thou/uL (1.20-3.40); #Monocytes 0.4 thou/uL (0.11-0.59); #Neutrophils 5.3 thou/uL (1.40-6.50); %Basophils 1.1 % (0.0-1.0); %Eosinophils 3.4 % (0.0-10.0); %Lymphocytes 28.6 % (21.0-51.0); %Monocytes 5.2 % (0.0-10.0); %Neutrophils 61.7 % (42.0-75.0); Mean Corpuscular HGB CONC 32.7 g/dL (32.0-36.0); Mean Corpuscular Hemoglobin 31.6 pg (27.0-31.0); Mean Corpuscular Volume 96.6 fl (78.0-98.0); Mean Platelet Volume 8.1 fL (7.4-10.4); Platelet Count 252 thou/uL (130-400); RBC Distribution Width 12.8 % (11.5-14.5); Red Blood Cell (RBC) Count 4.42 mill/uL (4.20-5.40); White Blood Cell (WBC) Count 8.6 thou/uL (4.8-10.8)
[2022-02-13] MEDS ORDERED: Lorazepam 1 MG TAB ONE (11:16)
[2022-02-13 11:20] LABS: ALT (SGPT) 12 U/L (8-55); AST (SGOT) 17 U/L (5-34); Alcohol Less than 10 mg/dL (Less than 10); Alkaline Phosphatase 76 U/L (40-110); Anion Gap 13 mmol/L (10-20); BUN (Urea Nitrogen) 7 mg/dL (7.0-18.7); Bilirubin, Total 0.3 mg/dL (0.2-1.2); Calc. Creatinine Clearance 0 mL/min (70-130); Calcium 9.2 mg/dL (7.8-10.44); Carbon Dioxide 21 mmol/L (22-29); Chloride 109 mmol/L (98-107); Estimated GFR 99; Globulin 3.3 g/dL (2.4-3.5); Glucose 91 mg/dL (70-105); Magnesium 1.8 mg/dL (1.6-2.6); Protein, Total 7.3 g/dL (6.0-8.3); Sodium 139 mmol/L (136-145)
[2022-02-13 11:40] LABS: CKMB 0.5 ng/mL (0-6.6)
[2022-02-13 11:51] LABS: Bilirubin Negative (Negative); Blood, Urine Negative (Negative); Clarity Clear (Clear); Glucose, Urine (Dipstick) Negative (Negative); Ketone, Urine Negative (Negative); Leukocyte Negative (Negative); Nitrite Negative (Negative); Pregnancy Test - Urine (BHCG) Negative (Negative); Pregu Control Background? CLEAR/WHITE (CLR/WHITE); Pregu Control Bar Appear? YES (CONTROL BAR); Protein, Urine (Dipstick) Negative (Neg-Trace); Urobilinogen 0.2 mg/dL (Less than 2)
[2022-02-13 11:59] LABS: Amphetamine Not Detected (NotDetected); Barbiturates Screen Not Detected (NotDetected); Benzodiazepine Screen Not Detected (NotDetected); Cocaine Metabolite Screen Not Detected (NotDetected); Medtox Control Line Valid? VALID (VALID); Methadone Not Detected (NotDetected); Methamphetamine Not Detected (NotDetected); Opiate Screen Not Detected (NotDetected); Oxycodone Screen Not Detected (NotDetected); Phencyclidine (PCP) Not Detected (NotDetected); THC/Cannabinoid Screen Detected (NotDetected); Tricyclic Screen Detected (NotDetected)
[2022-02-13] MEDS ORDERED: Aspirin 325 MG TAB ONE (13:23)
[2022-02-13] MEDS ORDERED: Heparin 10,000 UNITS/ 10 ML VIAL ONE (13:47)
[2022-02-13] MEDS ORDERED: Heparin 25,000 units/D5W 500 ML ONE (13:47)
[2022-02-13 14:27] LABS: Prothrombin Time 12.7 sec (12.0-14.7)
[2022-02-13 14:28] LABS: PTT 36.2 sec (22.9-36.1)
== END 2022-02-13 15:25 | disposition short-term general hospital (02) ==
LOC: MADERS 10:22
DX: R77.8 Other specified abnormalities of plasma proteins (principal); E03.9 Hypothyroidism, unspecified; F17.210 Nicotine dependence, cigarettes, uncomplicated; Z79.899 Other long term (current) drug therapy
CPT/HCPCS: 36415; 71045; 71275; 80053; 80306; 80307; 81003; 81025; 82553; 83735; 84439; 84443; 84480; 84484; 85025; 85379; 85610; 85730; 93005; 96365; 96376; J1644; Q9967

== ENCOUNTER 2022-04-26 10:45 | Emergency (ER) | payer OTHER, SELFPAY ==
[2022-04-26] MEDS ORDERED: Dexamethasone 10 MG/ML VIAL ONE (11:31)
== END 2022-04-26 12:10 | disposition home or self-care (01) ==
LOC: MADERS 10:45
DX: J06.9 Acute upper respiratory infection, unspecified (principal); E03.9 Hypothyroidism, unspecified; F17.210 Nicotine dependence, cigarettes, uncomplicated; Z79.899 Other long term (current) drug therapy
CPT/HCPCS: 71045; 96372; J1100; J7620

== ENCOUNTER 2022-04-27 13:00 | Emergency (ER) | payer BC, SELFPAY ==
[2022-04-27 14:14] LABS: #Lymphocytes 1.6 thou/uL (1.20-3.40); #Monocytes 0.2 thou/uL (0.11-0.59); #Neutrophils 13.5 thou/uL (1.40-6.50); %Basophils 0.1 % (0.0-1.0); %Eosinophils 0.1 % (0.0-10.0); %Lymphocytes 10.6 % (21.0-51.0); %Monocytes 1.5 % (0.0-10.0); %Neutrophils 87.8 % (42.0-75.0); Hemoglobin 13.7 g/dL (12.0-16.0); Mean Corpuscular HGB CONC 33.7 g/dL (32.0-36.0); Mean Corpuscular Hemoglobin 31.7 pg (27.0-31.0); Mean Corpuscular Volume 93.9 fl (78.0-98.0); Mean Platelet Volume 8.1 fL (7.4-10.4); Platelet Count 241 10x3/uL (130-400); RBC Distribution Width 11.7 % (11.5-14.5); Red Blood Cell (RBC) Count 4.32 mill/uL (4.20-5.40); White Blood Cell (WBC) Count 15.3 10x3/uL (4.8-10.8)
[2022-04-27] MEDS ORDERED: Sucralfate 1 GM TAB ONE (14:22)
[2022-04-27 14:34] LABS: ALT (SGPT) 12 U/L (8-55); AST (SGOT) 13 U/L (5-34); Albumin 4.2 g/dL (3.5-5.0); Alkaline Phosphatase 78 U/L (40-110); Anion Gap 16 mmol/L (10-20); BUN (Urea Nitrogen) 8 mg/dL (7.0-18.7); Bilirubin, Total 0.3 mg/dL (0.2-1.2); Calc. Creatinine Clearance 0 mL/min (70-130); Calcium 9.7 mg/dL (7.8-10.44); Carbon Dioxide 19 mmol/L (22-29); Chloride 110 mmol/L (98-107); Estimated GFR 87; Globulin 3.2 g/dL (2.4-3.5); Glucose 126 mg/dL (70-105); Protein, Total 7.4 g/dL (6.0-8.3); Sodium 141 mmol/L (136-145)
[2022-04-27 14:52] LABS: CKMB 0.6 ng/mL (0-6.6)
== END 2022-04-27 22:19 | disposition short-term general hospital (02) ==
LOC: MADERS 13:00
DX: R07.9 Chest pain, unspecified (principal); R77.8 Other specified abnormalities of plasma proteins; E03.9 Hypothyroidism, unspecified; F17.210 Nicotine dependence, cigarettes, uncomplicated; Z79.899 Other long term (current) drug therapy
CPT/HCPCS: 36415; 80053; 82553; 84484; 85025; 93005

== ENCOUNTER 2022-08-29 12:54 | Emergency (ER) | payer BC, MEDICAID | END 2022-08-29 14:00 | disposition home or self-care (01) | LOC: MADERS 12:54 | DX: G56.82 Other specified mononeuropathies of left upper limb (principal); E03.9 Hypothyroidism, unspecified; F17.210 Nicotine dependence, cigarettes, uncomplicated | CPT/HCPCS: 99283 ==

== ENCOUNTER 2023-02-25 20:38 | Emergency (ER) | payer OTHER, BC ==
[2023-02-25] MEDS ORDERED: Acetaminophen 500 MG TAB ONE (22:16)
== END 2023-02-25 22:24 | disposition home or self-care (01) ==
LOC: MADERS 20:38
DX: S93.402A Sprain of unspecified ligament of left ankle, initial encounter (principal); E03.9 Hypothyroidism, unspecified; E78.5 Hyperlipidemia, unspecified; F17.210 Nicotine dependence, cigarettes, uncomplicated; X50.1XXA Overexertion from prolonged static or awkward postures, initial encounter; Y93.01 Activity, walking, marching and hiking; Y92.89 Other specified places as the place of occurrence of the external cause; Z79.899 Other long term (current) drug therapy

== ENCOUNTER 2023-05-27 16:44 | Emergency (ER) | payer BC ==
[2023-05-27] MEDS ORDERED: HYDROcodone/Acetaminophen 5/325 mg Tablet ONE (19:48)
[2023-05-27] MEDS ORDERED: Ibuprofen 800 MG TAB ONE (19:48)
== END 2023-05-27 19:51 | disposition home or self-care (01) ==
LOC: MADERS 16:44
DX: S62.636A Displaced fracture of distal phalanx of right little finger, initial encounter for closed fracture (principal); I10 Essential (primary) hypertension; E78.5 Hyperlipidemia, unspecified; E03.9 Hypothyroidism, unspecified; F17.210 Nicotine dependence, cigarettes, uncomplicated; Z79.899 Other long term (current) drug therapy; W54.1XXA Struck by dog, initial encounter; Y93.89 Activity, other specified

== ENCOUNTER 2023-08-22 00:27 | Emergency (ER) | payer BC ==
[2023-08-22 00:45] LABS: Bilirubin Small (Negative); Blood, Urine Moderate (Negative); Clarity Clear (Clear); Glucose, Urine (Dipstick) Negative (Negative); Ketone, Urine 40 mg/dL (Negative); Leukocyte Negative (Negative); Nitrite Negative (Negative); Protein, Urine (Dipstick) Trace mg/dL (Neg-Trace); Specific Gravity, Urine 1.025 (1.005-1.030)
[2023-08-22 00:46] LABS: Pregnancy Test - Urine (BHCG) Negative (Negative); Pregu Control Background? CLEAR/WHITE (CLR/WHITE); Pregu Control Bar Appear? YES (CONTROL BAR); Specific Gravity 1.025 (1.002-1.036)
[2023-08-22] MEDS ORDERED: Sodium Chloride 0.9% 1,000 ML ONE ×2 (00:49→02:05)
[2023-08-22] MEDS ORDERED: Ondansetron PF 4 MG/2 ML Vial ONE ×2 (00:49→02:05)
[2023-08-22 00:51] LABS: RBC/HPF 0-3 HPF (0-3)
[2023-08-22 00:52] LABS: CAUTI Indications for Culture Pelvic or flank pain; Urine Culture Reflex No No; WBC/HPF 0-3 HPF (0-3)
[2023-08-22 01:08] LABS: Hematocrit 48.8 % (36.0-47.0); Hemoglobin 14.7 g/dL (12.0-16.0); Mean Corpuscular HGB CONC 30.1 g/dL (32.0-36.0); Mean Corpuscular Hemoglobin 27.5 pg (27.0-31.0); Mean Corpuscular Volume 91.4 fl (78.0-98.0); Mean Platelet Volume 7.5 fL (7.4-10.4); Platelet Count 293 10x3/uL (130-400); RBC Distribution Width 13.9 % (11.5-14.5); Red Blood Cell (RBC) Count 5.33 mill/uL (4.20-5.40); White Blood Cell (WBC) Count 12.8 10x3/uL (4.8-10.8)
[2023-08-22 01:11] LABS: Lymphocytes 16 % (21-51); MDiff Complete? YES; Monocytes 7 % (0-10); Neutrophil 77 % (42-75)
[2023-08-22 01:28] LABS: ALT (SGPT) 15 U/L (8-55); AST (SGOT) 24 U/L (5-34); Albumin 4.5 g/dL (3.5-5.0); Alkaline Phosphatase 89 U/L (40-110); Anion Gap 27 mmol/L (10-20); BUN (Urea Nitrogen) 14 mg/dL (7.0-18.7); Bilirubin, Total 0.5 mg/dL (0.2-1.2); Calc. Creatinine Clearance 0 mL/min (70-130); Calcium 9.5 mg/dL (7.8-10.44); Carbon Dioxide 22 mmol/L (22-29); Chloride 94 mmol/L (98-107); Estimated GFR 64; Globulin 3.4 g/dL (2.4-3.5); Glucose 102 mg/dL (70-105); Potassium 3.2 mmol/L (3.5-5.1); Protein, Total 7.9 g/dL (6.0-8.3); Sodium 140 mmol/L (136-145)
[2023-08-22 01:29] LABS: Troponin I 0.082 ng/mL (< 0.028)
[2023-08-22] MEDS ORDERED: Potassium Chloride 20 MEQ (100 mL) BAG ONE (02:05)
[2023-08-22 02:14] LABS: Acetaminophen Less than 10 mcg/mL (10.0-30.0); Alcohol Less than 10.0 mg/dL (Less than 10); Salicylate Less than 8.0 mg/dL (15.0-30.0)
[2023-08-22 02:40] LABS: Amphetamine Not Detected (NotDetected); Barbiturates Screen Not Detected (NotDetected); Benzodiazepine Screen Not Detected (NotDetected); Cocaine Metabolite Screen Not Detected (NotDetected); Methadone Not Detected (NotDetected); Methamphetamine Not Detected (NotDetected); Opiate Screen Not Detected (NotDetected); Oxycodone Screen Not Detected (NotDetected); Phencyclidine (PCP) Not Detected (NotDetected); THC/Cannabinoid Screen Detected (NotDetected); Tricyclic Screen Detected (NotDetected)
[2023-08-22 04:25] LABS: Troponin I 0.078 ng/mL (< 0.028)
[2023-08-22] MEDS ORDERED: Potassium Chloride 20 MEQ TAB ONE (04:40)
[2023-08-22] MEDS ORDERED: Iopamidol 370 76% 100 ML VIAL ONE ×2 (09:00)
== END 2023-08-22 04:50 | disposition home or self-care (01) ==
LOC: MADERS 00:27
DX: E86.0 Dehydration (principal); K59.00 Constipation, unspecified; E87.6 Hypokalemia; I21.4 Non-ST elevation (NSTEMI) myocardial infarction; F19.10 Other psychoactive substance abuse, uncomplicated; R11.2 Nausea with vomiting, unspecified; E03.9 Hypothyroidism, unspecified; E78.5 Hyperlipidemia, unspecified; I10 Essential (primary) hypertension; F17.210 Nicotine dependence, cigarettes, uncomplicated; Z79.899 Other long term (current) drug therapy
CPT/HCPCS: 71045; 71275; 74177; 80053; 80306; 80307; 81001; 81025; 83605; 84484; 85025; 85379; 93005; 96361; 96365; 96375; 96376; J2405; J3480; J7050; Q9967

== ENCOUNTER 2023-09-08 02:05 | Emergency (ER) | payer BC ==
[2023-09-08] MEDS ORDERED: Haloperidol Lactate 5 MG/ML VIAL ONE (02:29)
[2023-09-08] MEDS ORDERED: Ondansetron ODT 4 MG TAB ONE (02:29)
[2023-09-08 02:42] LABS: Bilirubin Small (Negative); Blood, Urine Negative (Negative); Glucose, Urine (Dipstick) Negative (Negative); Ketone, Urine 15 mg/dL (Negative); Leukocyte Negative (Negative); Nitrite Negative (Negative); Protein, Urine (Dipstick) 100 mg/dL (Neg-Trace); Urobilinogen 0.2 mg/dL (Less than 2)
[2023-09-08 02:45] LABS: Pregnancy Test - Urine (BHCG) Negative (Negative); Pregu Control Background? CLEAR/WHITE (CLR/WHITE); Pregu Control Bar Appear? YES (CONTROL BAR); Specific Gravity 1.026 (1.002-1.036)
[2023-09-08 02:47] LABS: Clarity Hazy (Clear); Specific Gravity, Urine 1.026 (1.002-1.036)
[2023-09-08 02:48] LABS: CAUTI Indications for Culture Dysuria,urgency,freq; Mucous/LPF 2+ LPF (<2+); WBC/HPF 0-3 HPF (0-3)
[2023-09-08 02:49] LABS: Urine Culture Reflex No No
[2023-09-08 02:53] LABS: Amphetamine Not Detected (NotDetected); Barbiturates Screen Not Detected (NotDetected); Benzodiazepine Screen Not Detected (NotDetected); Cocaine Metabolite Screen Not Detected (NotDetected); Methadone Not Detected (NotDetected); Methamphetamine Not Detected (NotDetected); Opiate Screen Not Detected (NotDetected); Oxycodone Screen Not Detected (NotDetected); Phencyclidine (PCP) Not Detected (NotDetected); THC/Cannabinoid Screen Detected (NotDetected); Tricyclic Screen Detected (NotDetected)
[2023-09-08] MEDS ORDERED: Lidocaine 2% Viscous 100 ML BOTTLE ONE (02:56)
[2023-09-08] MEDS ORDERED: Mag-Al Plus 1200/1200/120 MG (30 mL) UDCUP ONE (02:56)
== END 2023-09-08 03:45 | disposition home or self-care (01) ==
LOC: MADERS 02:05
DX: R11.2 Nausea with vomiting, unspecified (principal); E03.9 Hypothyroidism, unspecified; E78.5 Hyperlipidemia, unspecified; I10 Essential (primary) hypertension; F17.210 Nicotine dependence, cigarettes, uncomplicated; Z79.899 Other long term (current) drug therapy
CPT/HCPCS: 80306; 81001; 81025; 96372; 99284; J1630; Q0162

== ENCOUNTER 2023-12-25 22:24 | Emergency (ER) | payer BC ==
[2023-12-25] MEDS ORDERED: Sodium Chloride 0.9% 1,000 ML ONE (23:15)
[2023-12-25] MEDS ORDERED: Ondansetron PF 4 MG/2 ML Vial ONE (23:15)
[2023-12-25] MEDS ORDERED: QUEtiapine 100 MG TAB PO SCH (23:30)
[2023-12-25 23:37] LABS: Hematocrit 44.6 % (36.0-47.0); Hemoglobin 14.1 g/dL (12.0-16.0); Mean Corpuscular HGB CONC 31.5 g/dL (32.0-36.0); Mean Corpuscular Hemoglobin 29.4 pg (27.0-31.0); Mean Corpuscular Volume 93.2 fl (78.0-98.0); Mean Platelet Volume 7.3 fL (7.4-10.4); Platelet Count 249 10x3/uL (130-400); RBC Distribution Width 13.2 % (11.5-14.5); Red Blood Cell (RBC) Count 4.78 mill/uL (4.20-5.40); White Blood Cell (WBC) Count 13.5 10x3/uL (4.8-10.8)
[2023-12-25 23:38] LABS: Band 2 % (5-11); Lymphocytes 11 % (21-51); Monocytes 2 % (0-10); Neutrophil 85 % (42-75)
[2023-12-25 23:39] LABS: MDiff Complete? YES
[2023-12-25 23:40] LABS: BHCG - Serum Negative (NEGATIVE); Pregs Control Background? CLEAR/WHITE (CLR/WHITE); Pregs Control Bar Appear? YES (CONTROL BAR)
[2023-12-25 23:50] LABS: ALT (SGPT) 12 U/L (8-55); AST (SGOT) 15 U/L (5-34); Albumin 4.1 g/dL (3.5-5.0); Alkaline Phosphatase 82 U/L (40-110); Anion Gap 17 mmol/L (10-20); BUN (Urea Nitrogen) 12 mg/dL (7.0-18.7); Bilirubin, Total 0.5 mg/dL (0.2-1.2); Calc. Creatinine Clearance 0 mL/min (70-130); Calcium 9.7 mg/dL (7.8-10.44); Carbon Dioxide 18 mmol/L (22-29); Chloride 108 mmol/L (98-107); Estimated GFR 70; Globulin 3.7 g/dL (2.4-3.5); Glucose 130 mg/dL (70-105); Potassium 3.9 mmol/L (3.5-5.1); Protein, Total 7.8 g/dL (6.0-8.3); Sodium 139 mmol/L (136-145)
[2023-12-26] MEDS ORDERED: Ondansetron PF 4 MG/2 ML Vial ONE (00:10)
[2023-12-26 00:43] LABS: Bilirubin Small (Negative); Blood, Urine Trace (Negative); Clarity Cloudy (Clear); Glucose, Urine (Dipstick) Negative (Negative); Ketone, Urine 80 mg/dL (Negative); Leukocyte Negative (Negative); Nitrite Negative (Negative); Protein, Urine (Dipstick) 30 mg/dL (Neg-Trace); Specific Gravity, Urine 1.025 (1.005-1.030); pH, Urine 7.5 (5.0-9.0)
[2023-12-26 00:53] LABS: Bacteria/HPF Rare-Few HPF (None Seen); CAUTI Indications for Culture Pelvic or flank pain; RBC/HPF 0-3 HPF (0-3); WBC/HPF 0-3 HPF (0-3)
[2023-12-26 00:54] LABS: Urine Culture Reflex No No
[2023-12-26 01:18] LABS: Eosinophils 1 % (0-10)
[2023-12-26] MEDS ORDERED: Promethazine HCl 25 MG/ML VIAL ONE (01:56)
[2023-12-26] MEDS ORDERED: Sodium Chloride 0.9% 2,000 ML ONE (01:56)
[2023-12-26] MEDS ORDERED: Mag-Al 1200 mg/1200 mg/30 ML UDCUP ONE (05:29)
== END 2023-12-26 06:33 | disposition home or self-care (01) ==
LOC: MADERS 22:24
DX: R11.10 Vomiting, unspecified (principal); R19.7 Diarrhea, unspecified; E78.5 Hyperlipidemia, unspecified; I10 Essential (primary) hypertension; E03.9 Hypothyroidism, unspecified; F17.210 Nicotine dependence, cigarettes, uncomplicated; Z79.899 Other long term (current) drug therapy
CPT/HCPCS: 80053; 81001; 84703; 85025; 93005; 96361; 96374; 96375; 96376; J2405; J2550; J7030